=== PATIENT | female | born 1940 | race Caucasian/White ===

== ENCOUNTER → 2016-11-12 | Outpatient (CLI) | payer MEDICARE, OTHER ==
[~2016-11-12] MED LIST: ASPI-1093 PO; ATOR20TA65 PO; CARV10CR PO; CHOL40002 PO; INSU100C6 SQ; INSU100I4 SQ; METF10002 PO; VALS160T2 PO
[2016-11-12 09:56] LABS: CREATININE 0.93 mg/dL (0.60-1.30)
[2016-11-12 10:03] LABS: HEMOGLOBIN A1C 10.3 % (4.5-6.2)
[2016-11-13 16:28] LABS: CREATININE, URINE (mALB) 117.1 mg/dL (Not Estab.)
== END | disposition home or self-care (01) ==
LOC: LABPV 08:16
PROVIDERS: ATTEND Physician Assistant
DX: E11.65 Type 2 diabetes mellitus with hyperglycemia (principal)
CPT/HCPCS: 82043; 82565; 82570; 83036